=== PATIENT | male | born 1975 | race Caucasian/White ===

== ENCOUNTER 2021-03-19 15:00 | Emergency (ER) | payer OTHER ==
[~2021-03-19] VITALS: Ht 180.3 cm; Wt 113.4 kg
[2021-03-19 15:13] VITALS: BP 141/86
[2021-03-19] MEDS ORDERED: FLEXERIL PO (16:24)
[2021-03-19] MEDS ORDERED: NORCO5 PO (16:24)
== END 2021-03-19 16:30 | disposition home or self-care (01) ==
LOC: ER 15:00
DX: S16.1XXA Strain of muscle, fascia and tendon at neck level, initial encounter (principal); V49.9XXA Car occupant (driver) (passenger) injured in unspecified traffic accident, initial encounter; Y93.89 Activity, other specified; Y92.89 Other specified places as the place of occurrence of the external cause; Y99.8 Other external cause status